=== PATIENT | female | born 1980 | race Caucasian/White ===

== ENCOUNTER 2017-02-01 12:10 | Outpatient (CLI) | payer OTHER ==
[~2017-02-01] VITALS: Ht 149.9 cm; Wt 61.3 kg
[2017-02-01 12:22] VITALS: BP 112/66
[2017-02-01] MEDS ORDERED: PREN-3 PO (12:32)
[2017-02-01] MEDS ORDERED: CALC-545 PO (12:33)
== END 2017-02-01 13:10 | disposition home or self-care (01) ==
LOC: LDOP 12:10
PROVIDERS: ATTEND Obstetrics & Gynecology
DX: O09.522 Supervision of elderly multigravida, second trimester (principal); O26.892 Other specified pregnancy related conditions, second trimester; O99.342 Other mental disorders complicating pregnancy, second trimester; F32.9 Major depressive disorder, single episode, unspecified; R51 Headache; R42 Dizziness and giddiness; R03.0 Elevated blood-pressure reading, without diagnosis of hypertension; Z3A.25 25 weeks gestation of pregnancy
CPT/HCPCS: 59025; 81003; 87086; 99201; G0463

== ENCOUNTER 2017-03-29 18:08 | Outpatient (CLI) | payer OTHER ==
[~2017-03-29] VITALS: Ht 151.1 cm; Wt 64.5 kg
[~2017-03-29 18:08] MED LIST: CALC-545 PO; PREN-3 PO
[2017-03-29 18:20] VITALS: BP 116/69
== END 2017-03-29 19:20 | disposition home or self-care (01) ==
LOC: LDOP 18:08
PROVIDERS: ATTEND Obstetrics & Gynecology Maternal & Fetal Medicine
DX: O09.513 Supervision of elderly primigravida, third trimester (principal); O26.893 Other specified pregnancy related conditions, third trimester; O99.343 Other mental disorders complicating pregnancy, third trimester; R10.9 Unspecified abdominal pain; R30.0 Dysuria; F32.9 Major depressive disorder, single episode, unspecified; Z3A.33 33 weeks gestation of pregnancy
CPT/HCPCS: 59025; 81003; 99211; G0463

== ENCOUNTER 2017-04-25 15:11 | Outpatient (CLI) | payer OTHER ==
[~2017-04-25] VITALS: Ht 149.9 cm; Wt 67.3 kg
[2017-04-25 15:17] VITALS: BP 129/72
== END 2017-04-25 17:02 | disposition home or self-care (01) ==
LOC: LDOP 15:11
PROVIDERS: ATTEND Obstetrics & Gynecology Maternal & Fetal Medicine
DX: O09.513 Supervision of elderly primigravida, third trimester (principal); O36.8130 Decreased fetal movements, third trimester, not applicable or unspecified; O99.343 Other mental disorders complicating pregnancy, third trimester; F32.9 Major depressive disorder, single episode, unspecified; Z3A.37 37 weeks gestation of pregnancy
CPT/HCPCS: 59025; 76815; 99211; G0463

== ENCOUNTER 2017-05-05 05:33 | Inpatient (IN) | payer OTHER ==
[~2017-05-05] VITALS: Ht 149.9 cm; Wt 68.1 kg
[2017-05-05] MEDS ORDERED: LACTATED RINGERS 1,000 ML IV SCH ×2 (05:35→06:00)
[2017-05-05] MEDS ORDERED: OXYTOCIN 30U/ 0.9% NaCL 500ML 500 ML IV SCH (05:35)
[2017-05-05] MEDS ORDERED: ONDANSETRON 2MG/ML, 2ML IVPush ONE (06:00)
[2017-05-05] MEDS ORDERED: METOCLOPRAMIDE 5 MG/ML, 2ML IV ONE (06:00)
[2017-05-05] MEDS ORDERED: LACTATED RINGERS 1,000 ML IVBOLUS ONE (06:00)
[2017-05-05] MEDS ORDERED: SODIUM CITRATE/CITRIC ACID 30 ML UDC PO ONE (06:00)
[2017-05-05 06:06] LABS: HEMATOCRIT 35.8 % (34.6-47.8); HEMOGLOBIN 12.2 g/dL (11.7-16.4); WHITE BLOOD COUNT 9.8 x10^3/uL (3.4-10)
[2017-05-05] MEDS ORDERED: FENTANYL PF 250 MCG/5ML ONE (07:26)
[2017-05-05] MEDS ORDERED: SCOPOLAMINE PATCH, 1.5MG PATCH.TD72 TD ONE (07:30)
[2017-05-05] MEDS ORDERED: PROPOFOL 10 MG/ML, 20ML ONE (08:09)
[2017-05-05] MEDS ORDERED: PHENYLEPHRINE 10 MG/ML ONE (08:09)
[2017-05-05] MEDS ORDERED: ONDANSETRON 2MG/ML, 2ML ONE (08:09)
[2017-05-05] MEDS ORDERED: CEFAZOLIN 1,000 MG ONE (08:09)
[2017-05-05] MEDS ORDERED: LIDOCAINE-MPF 2% ,5ML ONE (08:09)
[2017-05-05] MEDS ORDERED: WATER-INJECTION,STERILE 10 ML IV ONE (08:09)
[2017-05-05] MEDS ORDERED: OXYTOCIN 10 UNITS/ML, 1ML ONE (08:09)
[2017-05-05] MEDS ORDERED: EPHEDRINE 50 MG/ML, 1ML ONE (08:09)
[2017-05-05] MEDS ORDERED: SUCCINYLCHOLINE 20 MG/ML, 10ML ONE (08:09)
[2017-05-05] MEDS ORDERED: HYDROmorphone 2 MG/ML, 1ML ONE (08:10)
[2017-05-05] MEDS: LACTATED RINGERS 1,000 ML IV SCH ×4 (08:29→20:48)
[2017-05-05] MEDS ORDERED: DIPH,PERTUSS(ACELL),TET VAC/PF NC IM-VACC PRN (08:30)
[2017-05-05] MEDS ORDERED: CARBOPROST TROMETHAMINE 250 MCG/ML, 1ML IM PRN (08:30)
[2017-05-05] MEDS ORDERED: MEASLES,MUMPS&RUBELLA VACC/PF 0.5 ML SQ-VACC PRN (08:30)
[2017-05-05] MEDS ORDERED: MISOPROSTOL 200 MCG TABLET PR PRN (08:30)
[2017-05-05] MEDS ORDERED: ACETAMINOPHEN 325 MG TABLET PO PRN (08:30)
[2017-05-05] MEDS ORDERED: ONDANSETRON 2MG/ML, 2ML IV PRN (08:30)
[2017-05-05] MEDS ORDERED: morphine SULFATE 10 MG/ML, 1ML IVPush PRN ×2 (08:30)
[2017-05-05] MEDS ORDERED: KETOROLAC 30 MG/1 ML ONE (08:41)
[2017-05-05] MEDS ORDERED: HYDROmorphone 1 MG/ML, 1ML ONE ×3 (08:41→09:00)
[2017-05-05] MEDS: KETOROLAC 30 MG/1 ML IV SCH ×3 (08:46→20:47)
[2017-05-05] MEDS: HYDROmorphone 1 MG/ML, 1ML IV PRN ×3 (08:55→09:57)
[2017-05-05] MEDS: PRENATAL VIT/IRON/FA 1 EACH TABLET PO SCH (09:00)
[2017-05-05] MEDS ORDERED: FENTANYL PF 100 MCG/2ML IV PRN (09:00)
[2017-05-05] MEDS: OXYTOCIN 30U/ 0.9% NaCL 500ML 500 ML IV SCH ×2 (09:20→18:29)
[2017-05-05] MEDS ORDERED: OXYcodone/APAP 5/325MG TABLET ONE (10:10)
[2017-05-05] MEDS: OXYcodone/APAP 5/325MG TABLET PO PRN ×4 (10:20→23:00)
[2017-05-05] MEDS ORDERED: MEPERIDINE/PF 100 MG/ML ONE (10:44)
[2017-05-05] MEDS: MEPERIDINE/PF 50 MG/ML IM PRN ×2 (10:46→19:12)
[2017-05-05 11:00] VITALS: BP 111/64
[2017-05-05] MEDS ORDERED: METHYLERGONOVINE 0.2 MG/ML IM ONE (12:00)
[2017-05-05 14:56] VITALS: BP 120/72
[2017-05-05 15:32] LABS: HEMATOCRIT 33.7 % (34.6-47.8); HEMOGLOBIN 11.5 g/dL (11.7-16.4); WHITE BLOOD COUNT 14.9 x10^3/uL (3.4-10)
[2017-05-05 19:25] VITALS: BP 112/67
[2017-05-05] MEDS ORDERED: RHOGAM FROM BLOOD BANK 1 NOTE EA IM/IV ONE (21:00)
[2017-05-05 23:45] VITALS: BP 96/58
[2017-05-06] MEDS: LACTATED RINGERS 1,000 ML IV SCH ×5 (00:29→16:29)
[2017-05-06] MEDS: KETOROLAC 30 MG/1 ML IV SCH ×4 (02:36→14:45)
[2017-05-06 03:55] VITALS: BP 103/62
[2017-05-06] MEDS: OXYTOCIN 30U/ 0.9% NaCL 500ML 500 ML IV SCH ×2 (04:29→14:29)
[2017-05-06 08:00] VITALS: BP 94/58
[2017-05-06] MEDS: PRENATAL VIT/IRON/FA 1 EACH TABLET PO SCH (08:51)
[2017-05-06] MEDS: DOCUSATE 100 MG CAPSULE PO PRN ×2 (13:28→22:19)
[2017-05-06] MEDS: OXYcodone/APAP 5/325MG TABLET PO PRN ×2 (13:28→22:19)
[2017-05-06] MEDS: SIMETHICONE 80 MG CHEW TAB PO PRN (14:42)
[2017-05-06] MEDS ORDERED: IBUPROFEN 600 MG TABLET ONE (14:50)
[2017-05-06] MEDS: IBUPROFEN 600 MG TABLET PO PRN (14:52)
[2017-05-06 19:45] VITALS: BP 109/71
[2017-05-07] MEDS: IBUPROFEN 600 MG TABLET PO PRN ×4 (01:43→21:09)
[2017-05-07 07:10] VITALS: BP 104/68
[2017-05-07] MEDS ORDERED: IBUPROFEN 600 MG TABLET PO PRN (08:30)
[2017-05-07] MEDS: DOCUSATE 100 MG CAPSULE PO PRN ×3 (08:31→22:31)
[2017-05-07] MEDS: PRENATAL VIT/IRON/FA 1 EACH TABLET PO SCH (08:32)
[2017-05-07] MEDS: OXYcodone/APAP 5/325MG TABLET PO PRN (19:28)
[2017-05-07 21:10] VITALS: BP 107/71
[2017-05-07] MEDS: SIMETHICONE 80 MG CHEW TAB PO PRN (22:31)
[2017-05-08 07:30] VITALS: BP 121/75
[2017-05-08] MEDS: DOCUSATE 100 MG CAPSULE PO PRN (07:43)
[2017-05-08] MEDS: IBUPROFEN 600 MG TABLET PO PRN (07:43)
[2017-05-08] MEDS: PRENATAL VIT/IRON/FA 1 EACH TABLET PO SCH (07:43)
[2017-05-08] MEDS ORDERED: IBUP100O23 PO (09:31)
[2017-05-08] MEDS ORDERED: IBUP-1222 PO (09:32)
[2017-05-08] MEDS ORDERED: OXYC-302 PO (09:34)
== END 2017-05-08 13:00 | disposition home or self-care (01) | DRG 765 ==
LOC: LDIP 05:33 → 2NW 10:53
PROVIDERS: ADMIT Obstetrics & Gynecology Maternal & Fetal Medicine; ATTEND Obstetrics & Gynecology Maternal & Fetal Medicine
PROC: 30233S1 Transfusion of Nonautologous Globulin into Peripheral Vein, Percutaneous Approach (ICD-10-PCS; principal; 2017-05-05)
PROC: 10D00Z1 Extraction of Products of Conception, Low, Open Approach (ICD-10-PCS; 2017-05-05)
DX: O99.354 Diseases of the nervous system complicating childbirth (principal); O36.0930 Maternal care for other rhesus isoimmunization, third trimester, not applicable or unspecified; F32.9 Major depressive disorder, single episode, unspecified; Z37.0 Single live birth; O99.344 Other mental disorders complicating childbirth; Z3A.40 40 weeks gestation of pregnancy; Z90.49 Acquired absence of other specified parts of digestive tract; G43.909 Migraine, unspecified, not intractable, without status migrainosus; Z96.643 Presence of artificial hip joint, bilateral; Z98.1 Arthrodesis status
CPT/HCPCS: 36415; 82803; 85025; 85461; 86850; 86900; J0690; J1170; J1885; J2175; J2405; J2704; J2790; J3010; J3490; J0330; J2210; J2370; J2590; J2765; J7120